=== PATIENT | female | born 1960 | race Two or more races ===

== ENCOUNTER 2017-03-06 17:36 | Emergency (ER) | payer SELFPAY ==
[~2017-03-06] VITALS: Ht 154.9 cm; Wt 68.0 kg
[2017-03-06 17:39] VITALS: BP 158/86
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
[2017-03-06] MEDS ORDERED: ORPHENADRINE CITRATE 60 MG/2 ML VIAL. IM ONE (18:30)
[2017-03-06] MEDS ORDERED: MORPHINE SULFATE 10 MG/ML VIAL. IM ONE (18:30)
[2017-03-06] MEDS ORDERED: ONDANSETRON ODT 4 MG TAB.RAPDIS. PO ONE (19:00)
[2017-03-06] MEDS ORDERED: CYCL10TA2 PO (19:51)
--- NOTE | 2017-03-07 09:29 | RAD ---
AP and lateral right tibia and fibula radiographs 03/06/2017 Clinical history: The patient fell out of the G-tube earlier in the evening. Right lower leg pain. AP and crosstable lateral digital radiographs of the right tibia and fibula were obtained. There is diffuse osteopenia of the visualized bony structures. No fracture or dislocation is seen. Mild to moderate degenerative changes are seen involving all 3 compartments of the right knee. Impression: No fracture or dislocation of the right tibia or fibula is seen.
--- NOTE | 2017-03-07 09:31 | RAD ---
Three-view right knee radiographs 03/06/2017 Clinical history: The patient fell out of deep earlier in the evening. Right knee pain. AP, lateral and oblique digital radiographs of the right knee were obtained. No fracture or dislocation of the right knee is seen. Mild to moderate degenerative changes are seen involving all 3 compartment of the right knee, particularly the medial and patellofemoral compartments. There is a small right suprasellar joint effusion. Impression: No fracture or dislocation of the right knee is seen.
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
--- NOTE | 2017-03-07 09:55 | RAD ---
Pelvis with right hip, 3 views, 03/06/2017: History: Fall, injuries No fracture or dislocation is identified. There is mild spurring at both hip joints. There are mild degenerative changes in the lower lumbar spine. IMPRESSION: No acute bony abnormality is detected.
--- NOTE | 2017-03-07 09:56 | RAD ---
Right femur, 2 views, 03/06/2017: History: Fall, injury No fracture is identified. There are moderate hypertrophic degenerative changes at the knee joint. IMPRESSION: No acute bony abnormality is detected.
--- NOTE | 2017-03-07 09:58 | RAD ---
Right ankle, 3 views, 03/06/2017: History: Injury, pain No fracture or dislocation is identified. There is moderate soft tissue swelling particularly over the lateral malleolus. IMPRESSION: No acute bony abnormality is detected.
== END 2017-03-06 20:00 | disposition home or self-care (01) ==
LOC: ER 17:36
DX: S40.011A Contusion of right shoulder, initial encounter (principal); S70.01XA Contusion of right hip, initial encounter; S80.11XA Contusion of right lower leg, initial encounter; M54.5 Low back pain; E78.00 Pure hypercholesterolemia, unspecified; E03.9 Hypothyroidism, unspecified; G47.00 Insomnia, unspecified; M19.90 Unspecified osteoarthritis, unspecified site; Z88.0 Allergy status to penicillin; W17.89XA Other fall from one level to another, initial encounter; Y93.89 Activity, other specified; Y92.59 Other trade areas as the place of occurrence of the external cause; Y99.8 Other external cause status
CPT/HCPCS: 72100; 73502; 73552; 73562; 73590; 73610; 96372; 99284; J2270; J2360; Q0162

== ENCOUNTER → 2021-03-27 | Outpatient (CLI) | payer OTHER ==
[~2021-03-27] MED LIST: CYCL10TA2 PO
--- NOTE | 2021-03-27 11:21 | RAD ---
EXAM: Lumbar spine, 2 views. HISTORY: Pain. COMPARISON: 03/06/2017 FINDINGS: 2 views of the lumbar spine are obtained. There are 6 nonrib-bearing lumbar segments, a nor mal variant. The last segment is considered L6 for this dictation. There is grade 1 anterolisthesis o f L5 on L6, measuring 6 mm. There is grade 1 anterolisthesis of L6 on S1, measuring 3 mm. There is 3 mm retrolisthesis of and L3 on L4 and L4 on L5. There is degenerative endplate remodeling with disc s pace narrowing, osteophytosis and facet arthropathy predominantly at L6-S1, and to a lesser extent, L 5 to L6. IMPRESSION: 1. 6 nonrib-bearing lumbar segments. The last segment is considered L6 for this dictation. 2. Degenerative change primarily at L6-S1, and to a lesser extent, L5-L6. 3. Mild multilevel listhesis, described above. Electronically signed by: Livia Buchanan MD (03/27/2021 11:19 AM) [id number]
--- NOTE | 2021-03-27 11:22 | RAD ---
EXAM: Bilateral knees, 2 views. HISTORY: Pain. COMPARISON: 03/06/2017. FINDINGS: 2 views of both knees are obtained. There is severe bilateral medial compartment joint spac e narrowing with subchondral sclerosis, subchondral cyst formation and marginal spurring. There is as sociated bony remodeling involving the right medial tibial plateau. There is mild bilateral lateral a nd patellofemoral compartment spurring. There is enthesopathy along the superior patellae. No signifi cant joint effusion is seen. IMPRESSION: 1. Severe medial and mild lateral and patellofemoral compartment osteoarthritis of both knees. 2. No acute osseous finding. Electronically signed by: Livia Buchanan MD (03/27/2021 11:20 AM) [id number]
== END ==
LOC: RAD 10:04
PROVIDERS: ATTEND Internal Medicine Pulmonary Disease
DX: M47.817 Spondylosis without myelopathy or radiculopathy, lumbosacral region (principal); M43.17 Spondylolisthesis, lumbosacral region; M17.0 Bilateral primary osteoarthritis of knee
CPT/HCPCS: 72100; 73560-50